=== PATIENT | male | born 1985 | race Caucasian/White ===

== ENCOUNTER 2020-10-16 10:53 | Observation (INO) | payer OTHER, SELFPAY ==
--- NOTE | ~2020-10-16 | NM_ITS ---
EXAMINATION: NM hepatobiliary wo pharm DATE: 10/17/2020 15:53 INDICATION: Epigastric and right upper quadrant abdominal pain. COMPARISON: Ultrasound 10/16/2020 TECHNIQUE: 4.5 mCi Tc-99m mebrofenin (Choletec) was administered intravenously. Scintigraphic images of the abdomen were obtained for one hour. Then, 2 mg morphine IV was administered, and imaging was continued for 30 minutes. FINDINGS: There is normal clearance of radiotracer from the blood pool. There is homogeneous tracer u ptake by the liver. Activity progresses to the bowel. There is no activity in the gallbladder. IMPRESSION: 1. Acute cholecystitis. Reviewed, dictated and finalized at location B. [employer]ACHIN[employer] SUPERVISOR IMPRESSION: 1. Acute cholecystitis.
--- NOTE | ~2020-10-16 | US_ITS ---
US abdomen limited INDICATION: Abdominal pain. Gallstones. PROCEDURE: Realtime right upper abdominal ultrasound. COMPARISON: No prior studies for comparison. FINDINGS: The pancreas is normal without focal mass or pancreatic ductal dilation. Liver echotexture is normal without focal mass or intrahepatic biliary dilatation. There is normal directional flow i n the portal vein. There are gallstones. There is gallbladder wall thickening. Common bile duct measures 3 mm. Positiv e sonographic Cohen's sign. IMPRESSION: 1: Cholelithiasis with gallbladder wall thickening and postoperative sonographic Cohen's sign. Findi ngs compatible with cholecystitis. Reviewed, dictated and finalized at location A. JOINER LOCKSTITCH IMPRESSION: 1: Cholelithiasis with gallbladder wall thickening and postoperative sonographi c Cohen's sign. Findings compatible with cholecystitis.
[2020-10-16 10:50] VITALS: BP 161/109; PULSE 80; RESP 18; TEMP 36.9; O2SAT 100
[2020-10-16 11:09] LABS: Basophils Absolute Auto 0.1 K/mm3 (0.0-0.1); Basophils Percent Auto 0.7 % (0.2-1.2); Eosinophils Absolute Auto 0.1 K/mm3 (0-0.3); Eosinophils Percent Auto 0.8 % (0-4.4); Hemoglobin 17.5 g/dL (14.0-18.0); Immature Granulocyte Absolute 0.07 K/mm3 (0.00-0.031); Immature Granulocyte Percent A 0.5 % (0-0.5); Lymphocytes Absolute Auto 3.36 K/mm3 (0.9-3.2); Lymphocytes Percent Auto 24.7 % (18.3-44.2); Mean Corpuscular Hemoglobin 31.5 pg (26-34); Mean Corpuscular Volume 89.9 fl (80-100); Mean Platelet Volume 11.1 fl (7.4-10.4); Monocytes Absolute Auto 0.8 K/mm3 (0.1-0.6); Monocytes Percent Auto 6.2 % (2.6-8.5); Neutrophils Absolute Auto 9.1 K/mm3 (1.3-6.7); Neutrophils Percent Auto 67.1 % (45.5-73.1); Platelet Count Result 354 k/mm3 (150-375); Red Blood Count 5.56 M/mm3 (4.6-6.20); Red Cell Distribution Width 13.3 % (11.5-14.5); White Blood Count 13.6 K/mm3 (4.5-10.0)
[2020-10-16 11:23] LABS: Alanine Aminotransferase 28 U/L (4-50); Albumin Level 4.8 g/dL (3.5-5.1); Alkaline Phosphatase 78 U/L (38-126); Anion Gap 8 mmol/L (8-16); Aspartate Amino Transferase 29 U/L (17-59); Bilirubin,Total 0.6 mg/dL (0.2-1.3); Blood Urea Nitrogen 16 mg/dL (9-20); Calcium 9.7 mg/dL (8.4-10.2); Carbon Dioxide 28 mmol/L (22-30); Chloride 102 mmol/L (98-107); Estimated CRCL calculation 122 ml/min; Estimated Glomerular Filt Rate > 60; Glucose 108 mg/dL (75-110); Lipase 65 U/L (23-300); Potassium 4.1 mmol/L (3.4-5.0); Sodium 138 mmol/L (137-145)
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
[2020-10-16] MEDS: SODIUM CHLORIDE 0.9% IV 1,000 ML 999 ML IV CONT (11:33)
[2020-10-16] MEDS: ONDANSETRON INJ 4 MG/2 ML VIAL IV PUSH ×2 (11:33→21:02)
[2020-10-16] MEDS: KETOROLAC 30 MG/ML VIAL (*BKC) IM (11:33)
[2020-10-16 12:03] VITALS: TEMP 36.9
[2020-10-16 13:03] VITALS: BP 134/85; PULSE 65; RESP 18; O2SAT 95
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
--- NOTE | 2020-10-16 13:35 | ADMGEN ---
This patient, Jayme Gómez, was admitted to Medical Room 345-. Patient/family oriented to hospital policies and general routines including ID bracelet, bed and alarms, visiting hours, pain management, procedures, bathroom and other care routines, personal items, smoking policy, room service/diet, and visiting hours. Information on how to activate the Rapid Response Team has been discussed. Patient/Family are encouraged to report perceived risks to care and to ask questions if they do not understand what they are told or what they should do.
[2020-10-16 13:48] VITALS: BMI 42.3
[2020-10-16 13:49] VITALS: BP 140/79; PULSE 67; RESP 18; TEMP 36.3; O2SAT 100
[2020-10-16] MEDS: LACTATED RINGERS 1,000 ML 100 ML IV CONT (14:23)
[2020-10-16 18:27] LABS: Appearance Urine Clear (Clear); Bilirubin Urine Negative (Negative); Blood Urine Negative (Negative); Color Urine Yellow (Yellow); Glucose Urine UA Negative (Negative); Ketones Urine Negative (Negative); Nitrate Urine Negative (Negative); Protein Urine Negative (Negative); Urobilinogen Urine Negative mg/dL (<2.0)
[2020-10-16 18:28] LABS: Add Urine Microscopic? NO; Leukocyte Esterase Ur Negative LEU/UL (Negative); Specific Grav Ur 1.054 (1.001-1.035)
--- NOTE | 2020-10-16 18:33 | ECG_ITS ---
Measurements Intervals [place] Rate: 65 P: 45 FL: 198 QRS: 68 QRSD: 94 T: 47 QT: 422 QTc: 439 Interpretive Statements SINUS RHYTHM WITH SINUS ARRHYTHMIA BASELINE WANDER- V4-V6 NORMAL ECG Electronically Signed On 10-16-2020 21:40:53 [employer] by Luis Ryan D.O.
[2020-10-16 19:22] LABS: Troponin I < 0.012 ng/mL (0.000-0.034)
[2020-10-16 20:00] VITALS: PULSE 61; RESP 14; O2SAT 100
[2020-10-16 20:05] VITALS: BP 150/95; PULSE 61; RESP 14; TEMP 36.4; O2SAT 100
[2020-10-16] MEDS: ENOXAPARIN 30 MG/0.3 ML SYRINGE SUB-Q (20:56)
[2020-10-16] MEDS: FAMOTIDINE 20 MG/2 ML VIAL IV PUSH (20:57)
[2020-10-16 22:06] LABS: Troponin I < 0.012 ng/mL (0.000-0.034)
[2020-10-17] MEDS: LACTATED RINGERS 1,000 ML 100 ML IV CONT ×2 (05:11→22:12)
[2020-10-17 05:49] VITALS: BP 151/95; PULSE 66; RESP 14; TEMP 36.6; O2SAT 99
[2020-10-17 06:05] LABS: Hematocrit 43.6 % (42.0-52.0); Hemoglobin 14.6 g/dL (14.0-18.0); Mean Corpuscular HGB Conc 33.5 g/dl (32-36); Mean Corpuscular Volume 89.7 fl (80-100); Mean Platelet Volume 11.8 fl (7.4-10.4); Platelet Count Result 323 k/mm3 (150-375); Red Blood Count 4.86 M/mm3 (4.6-6.20); Red Cell Distribution Width 13.6 % (11.5-14.5); White Blood Count 10.6 K/mm3 (4.5-10.0)
[2020-10-17 06:13] LABS: Alanine Aminotransferase 21 U/L (4-50); Albumin Level 3.6 g/dL (3.5-5.1); Alkaline Phosphatase 58 U/L (38-126); Anion Gap 4 mmol/L (8-16); Aspartate Amino Transferase 23 U/L (17-59); Bilirubin,Total 1.1 mg/dL (0.2-1.3); Blood Urea Nitrogen 15 mg/dL (9-20); Calcium 8.7 mg/dL (8.4-10.2); Carbon Dioxide 28 mmol/L (22-30); Chloride 104 mmol/L (98-107); Estimated CRCL calculation 111 ml/min; Estimated Glomerular Filt Rate > 60; Glucose 95 mg/dL (75-110); Potassium 3.8 mmol/L (3.4-5.0); Sodium 136 mmol/L (137-145)
--- NOTE | 2020-10-17 06:53 | PM.PNGS ---
Progress Note: A&P Assessment and Plan (1) Cholelithiasis and acute cholecystitis without obstruction: Code(s): K80.00 - Calculus of gallbladder with acute cholecystitis without obstruction Status: Acute Assessment and Plan: Pain is gone but nauseated. More nauseated when tried to drink water. Will get HIDA scan today. Probably will need cholecystectomy this admission. Continue IV antibiotics. Subjective Subjective Date/Time Seen: 10/17/20 06:53 Patient reports: pain is less, nausea and afebrile Review of Systems Review of Systems: All systems reviewed & are unremarkable except as noted in HPI and below Constitutional: Constitutional: Denies headache(s) Cardiovascular: Cardiovascular: Denies chest pain and Denies dyspnea Respiratory: Respiratory: Denies cough and Denies dyspnea Gastrointestinal: Gastrointestinal: Reports as per HPI Neurologic: Denies confusion and Denies headache(s) Exam Const: General: comfortable and no acute distress; No confusion Orientation/consciousness: patient oriented x3 and No confusion GI: Inspection: non-distended and scar GI Palp: Yes Soft to palpation, No Tenderness to palpation present (GI), No Guarding due to palpation present (GI) and No Rebound tenderness present Auscultation: normal bowel sounds Neuro: General: patient oriented x3, no focal motor deficits and No confusion Extrem: General: no calf tenderness and no edema Psych: Affect: normal affect Insight: Good insight present (Psych) Judgement: Good judgement present (Psych) Objective Data Vital Signs Vital Signs: Vital Signs - 24 hr 10/16/20 10:50 10/16/20 12:03 10/16/20 13:03 Temperature 36.9 C 36.9 C Pulse Rate 80 65 Respiratory Rate 18 18 Blood Pressure 161/109 H 134/85 Pulse Oximetry 100 95 10/16/20 13:49 10/16/20 20:00 10/16/20 20:05 Temperature 36.3 C L 36.4 C Pulse Rate 67 61 61 Respiratory Rate 18 14 14 Blood Pressure 140/79 150/95 H Pulse Oximetry 100 100 100 10/17/20 05:49 Temperature 36.6 C Pulse Rate 66 Respiratory Rate 14 Blood Pressure 151/95 H Pulse Oximetry 99 Intake/Output Intake/Output: Intake & Output 10/14/20 10/15/20 10/16/20 10/17/20 23:59 23:59 23:59 23:59 Intake Total 1100 1000 Output Total 0 800 Balance 1100 200 Meds/Results Medications: Active Medications Generic Name Dose Route Start Last Admin Trade Name Freq PRN Reason Stop Dose Admin Acetaminophen 500 mg 10/16/20 13:48 Acetaminophen 500 Mg Tablet PO Q6H PRN Mild Pain (1-3) or Fever Hydrocodone Bitart/Acetaminophen 1 tab 10/16/20 13:48 Hydrocodone/Acetaminophen (*Crx) 5-325 Mg Tablet PO Q4H PRN Pain Rated 4-6 Hydrocodone Bitart/Acetaminophen 1 tab 10/16/20 13:48 Hydrocodone/Acetaminophen (*Crx) 10-325 Mg Tablet PO Q4H PRN Pain Rated 7-10 Enoxaparin Sodium 30 mg 10/16/20 21:00 10/16/20 20:56 Enoxaparin 30 Mg/0.3 Ml Syringe SUB-Q 30 mg Q12HR TOMER Administration Famotidine 20 mg 10/16/20 21:00 10/16/20 20:57 Famotidine 20 Mg/2 Ml Vial IV PUSH 20 mg Q12HR TOMER Administration Piperacillin/Tazobactam/Dextrose 3.375 gm in 50 mls @ 100 mls/hr 10/16/20 18:00 10/17/20 05:09 Zosyn 3.375 Gm/D5w 50ml Pm IVPB 100 mls/hr Q6H TOMER Administration Lactated Ringer's 1,000 mls @ 100 mls/hr 10/16/20 13:50 10/17/20 05:11 Lr - Lactated Ringers Iv IV CONT 100 mls/hr .Q10H TOMER Administration Morphine Sulfate 2 mg 10/16/20 13:48 Morphine Sulfate (*Crx) 2 Mg/Ml Inj IV PUSH Q2H PRN Pain Rated 4-6 Morphine Sulfate 4 mg 10/16/20 13:48 Morphine Sulfate (*Crx) 4 Mg/Ml Inj IV PUSH Q2H PRN Pain Rated 7-10 Naloxone HCl 0.1 mg 10/16/20 13:48 Naloxone Hcl 0.4 Mg/Ml Vial IV PUSH Q2M PRN Opiate Reversal Ondansetron HCl 4 mg 10/16/20 13:48 10/16/20 21:02 Ondansetron Inj 4 Mg/2 Ml Vial IV PUSH 4 mg Q4H PRN Administration Nausea And Vomiting
[2020-10-17] MEDS: FAMOTIDINE 20 MG/2 ML VIAL IV PUSH ×2 (08:34→21:09)
[2020-10-17] MEDS: ENOXAPARIN 30 MG/0.3 ML SYRINGE SUB-Q ×2 (08:37→21:09)
[2020-10-17 10:32] VITALS: O2SAT 98
[2020-10-17 14:00] VITALS: BP 143/82; PULSE 64; RESP 16; TEMP 36.4; O2SAT 99
[2020-10-17] MEDS: MORPHINE SULFATE (*CRX) 2 MG/ML INJ IV PUSH (15:02)
[2020-10-17 21:54] VITALS: BP 135/96; PULSE 74; RESP 16; TEMP 36.2; O2SAT 98
[2020-10-18] VITALS (13 sets, daily range): BP systolic 125–154; BP diastolic 77–94; PULSE 62–93; RESP 15–19; TEMP 35.8–37.1; O2SAT 98–100
[2020-10-18 05:49] LABS: Hematocrit 45.2 % (42.0-52.0); Hemoglobin 15.1 g/dL (14.0-18.0); Mean Corpuscular HGB Conc 33.4 g/dl (32-36); Mean Corpuscular Hemoglobin 29.8 pg (26-34); Mean Corpuscular Volume 89.3 fl (80-100); Mean Platelet Volume 11.1 fl (7.4-10.4); Platelet Count Result 324 k/mm3 (150-375); Red Blood Count 5.06 M/mm3 (4.6-6.20); Red Cell Distribution Width 13.2 % (11.5-14.5); White Blood Count 8.7 K/mm3 (4.5-10.0)
[2020-10-18 06:09] LABS: Alanine Aminotransferase 22 U/L (4-50); Albumin Level 3.6 g/dL (3.5-5.1); Alkaline Phosphatase 59 U/L (38-126); Anion Gap 5 mmol/L (8-16); Aspartate Amino Transferase 23 U/L (17-59); Bilirubin,Total 1.3 mg/dL (0.2-1.3); Blood Urea Nitrogen 13 mg/dL (9-20); Calcium 8.8 mg/dL (8.4-10.2); Carbon Dioxide 27 mmol/L (22-30); Chloride 104 mmol/L (98-107); Estimated CRCL calculation 102 ml/min; Estimated Glomerular Filt Rate > 60; Glucose 85 mg/dL (75-110); Potassium 3.7 mmol/L (3.4-5.0); Sodium 136 mmol/L (137-145)
[2020-10-18] MEDS: CHLORHEXIDINE GLUCONATE 4% SOL 120 ML BTL 1 APPLIC TOPICAL (06:09)
--- NOTE | 2020-10-18 06:43 | PM.PNGS ---
Progress Note: A&P Assessment and Plan (1) Cholelithiasis and acute cholecystitis without obstruction: Code(s): K80.00 - Calculus of gallbladder with acute cholecystitis without obstruction Status: Acute Assessment and Plan: HIDA scan consistent with acute cholecystitis. Patient's pain is better but he can't even drink water without nausea. I have recommended we go ahead with laparoscopic cholecystectomy today. I discussed the procedure the risks the benefits. I also discussed the possibility that this may need to be converted to open surgery. The usual recovery with both laparoscopic and open surgery were discussed. All questions were answered. He understands and agrees to go ahead. Subjective Subjective Date/Time Seen: 10/18/20 06:43 Patient reports: pain is less, nausea and afebrile Interval history: still really can't eat without getting severe nausea. Only has tried drinking water and a small amount of that will result in nausea. Pain is much better, essentially gone. HIDA scan yesterday consistent with acute cholecystitis. Review of Systems Review of Systems: All systems reviewed & are unremarkable except as noted in HPI and below Constitutional: Constitutional: Denies chills, Denies fever(s), Denies headache(s) and Reports poor appetite Cardiovascular: Cardiovascular: Denies chest pain and Denies dyspnea Respiratory: Respiratory: Denies cough and Denies dyspnea Gastrointestinal: Gastrointestinal: Reports as per HPI, Denies abdominal pain and Reports nausea Neurologic: Denies confusion and Denies headache(s) Exam Const: General: comfortable and no acute distress; No confusion Orientation/consciousness: patient oriented x3 and No confusion GI: Inspection: non-distended and scar GI Palp: Yes Soft to palpation, No Tenderness to palpation present (GI), No Guarding due to palpation present (GI), No Palpable mass present and No Rebound tenderness present Auscultation: normal bowel sounds Neuro: General: patient oriented x3, no focal motor deficits and No confusion Extrem: General: no calf tenderness and no edema Psych: Affect: normal affect Insight: Good insight present (Psych) Judgement: Good judgement present (Psych) Objective Data Vital Signs Vital Signs: Vital Signs - 24 hr 10/17/20 10:32 10/17/20 14:00 10/17/20 21:54 Temperature 36.4 C 36.2 C L Pulse Rate 64 74 Respiratory Rate 16 16 Blood Pressure 143/82 H 135/96 H Pulse Oximetry 98 99 98 Intake/Output Intake/Output: Intake & Output 10/15/20 10/16/20 10/17/20 10/18/20 23:59 23:59 23:59 23:59 Intake Total 1100 2250 820 Output Total 0 800 200 Balance 1100 1450 620 Meds/Results Medications: Active Medications Generic Name Dose Route Start Last Admin Trade Name Freq PRN Reason Stop Dose Admin Hydrocodone Bitart/Acetaminophen 1 tab 10/16/20 13:48 Hydrocodone/Acetaminophen (*Crx) 5-325 Mg Tablet PO Q4H PRN Pain Rated 4-6 Hydrocodone Bitart/Acetaminophen 1 tab 10/16/20 13:48 Hydrocodone/Acetaminophen (*Crx) 10-325 Mg Tablet PO Q4H PRN Pain Rated 7-10 Enoxaparin Sodium 30 mg 10/16/20 21:00 10/17/20 21:09 Enoxaparin 30 Mg/0.3 Ml Syringe SUB-Q 30 mg Q12HR TOMER Administration Famotidine 20 mg 10/16/20 21:00 10/17/20 21:09 Famotidine 20 Mg/2 Ml Vial IV PUSH 20 mg Q12HR TOMER Administration Piperacillin/Tazobactam/Dextrose 3.375 gm in 50 mls @ 100 mls/hr 10/16/20 18:00 10/18/20 06:06 Zosyn 3.375 Gm/D5w 50ml Pm IVPB 100 mls/hr Q6H TOMER Administration Lactated Ringer's 1,000 mls @ 100 mls/hr 10/16/20 13:50 10/18/20 06:08 Lr - Lactated Ringers Iv IV CONT 100 mls/hr .Q10H TOMER Infusion Acetaminophen 1,000 mg in 100 mls @ 400 mls/hr 10/18/20 00:00 10/18/20 05:54 Ofirmev 1,000 Mg Ivpb IVPB 10/19/20 00:01 Infused Q6HR TOMER Infusion Morphine Sulfate 2 mg 10/16/20 13:48 Morphine Sulfate (*Crx) 2 Mg/Ml Inj IV PUSH Q2H P
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
[2020-10-18] MEDS: LACTATED RINGERS 1,000 ML 100 ML IV CONT ×2 (11:11→17:31)
[2020-10-18] MEDS: FAMOTIDINE 20 MG/2 ML VIAL IV PUSH ×2 (11:12→20:45)
--- NOTE | 2020-10-18 14:15 | WPDHPUPDATE1 ---
History and Physical Update Update Date/Time: 10/18/20 14:15 History and Physical has been reviewed, including an updated exam of the patient. There are NO changes in the patient's condition. Risks, benefits, and alternatives have been discussed and questions answered. Patient agrees to proceed with procedure.
[2020-10-18] MEDS: LACTATED RINGERS 1,000 ML 30 ML IV CONT ×2 (14:26→16:03)
[2020-10-18] MEDS: BUPIVACAINE/EPINEPHRINE 0.5% 10 ML VIAL 20 ML INFILTRATE (15:06)
--- NOTE | 2020-10-18 16:06 | P.OP_ITS ---
Procedure Note - Detailed Date of procedure: 10/18/20 Pre-op diagnosis: Cholelithiasis with acute cholecystitis Cholelithiasis with acute cholecystitis, with cystic duct obstruction Post-op diagnosis: same Procedure performed: Laparoscopic cholecystectomy Description of procedure: The patient was taken to surgery and induced into general anesthesia. The abdomen was prepped and draped. Trocars were placed in the usual fashion using 0.5% Marcaine with epinephrine and applied Medical optical trocars. A 5 millimeter camera was used. There were numerous adhesions to the right lobe of the liver and the anterior abdominal wall that had to be taken down before we could get access to the gallbladder. We also had to take down some adhesions of omentum to the edge of the liver. Once these were taken down, I was able to elevate the gallbladder and proceeded with freeing it from other adhesions surrounding the gallbladder. The gallbladder was then decompressed with a laparoscopic aspirator. There were large stones in the gallbladder and very little bile. The cholecystotomy was closed with a Vicryl endo-loop. The gallbladder was retracted anterosuperiorly. Adhesions to the gallbladder were taken down so that the cholecystohepatic triangle was exposed. The anatomy of the cholecystohepatic triangle was somewhat odd. The patient had a very large right hepatic artery and what appeared to be a cystic artery ran up along the medial margin of the gallbladder but then entered the liver. There may have been a tiny branch going to the gallbladder which was cauterized and removed with adhesions, it was difficult to tell. Traction was placed on the infundibulum. The infundibulum of the gallbladder was very thin and partially tore although no stones spilled. Dissection of the neck of the gallbladder and the cystic duct was carried out. The cystic duct was quite long. It was dissected out its entire length. The infundibulum and the more proximal gallbladder were dissected off the liver to an extent where there was only just a few peritoneal attachments of the gallbladder to the liver near the fundus. Critical view was achieved. We securely clipped and divided the cystic duct. As I mentioned, the cystic duct did not really go to the gallbladder and was left unharmed although it was dissected out thoroughly. The gallbladder was then further retracted so that the remaining peritoneal attachments to the liver could be divided. Once the gallbladder was freed entirely, it was placed in an Endo-Catch bag and retrieved through the 10 11 epigastric trocar site. The epiga stric trocar was then replaced. We reviewed the right upper quadrant. It was irrigated and suctioned. This was done repeatedly. I also re-reviewed the right hepatic artery and the cystic duct stump. No evidence of misidentification and common bile duct injury was appreciated. All looked good with no evidence of bleeding or bile leakage. We evacuated CO2 and removed the trocar sleeves. Skin wounds were closed with subcuticular 4 O Monocryl skin suture. The wounds were dressed with Exofin surgical adhesive. Patient was awakened and taken to recovery in good condition. Sponge and needle counts were correct x2. Anesthesia: GETA and local (0.5% Marcaine with epinephrine) Surgeon: Mando Gonzalez MD Counter Intelligence: Pat GARCIA Estimated blood loss (mL): 20 Drains: No Packing: No Pathology: yes (Gallbladder) Complications: None Condition: stable Disposition: PACU Findings: Chronic inflammation, several large gallstones noted. Many adhesions to the gallbladder and in the cholecystohepatic triangle most likely from previous surgery and chronic inflammation. No biliary ductal dilatation, no liver abnormalit
[2020-10-18] MEDS: fentaNYL CITRATE INJ (*CRX) 100 MCG/2 ML VIAL 25 MCG IV PUSH (16:54)
[2020-10-18] MEDS: ONDANSETRON INJ 4 MG/2 ML VIAL IV PUSH ×2 (17:05→17:25)
[2020-10-19 05:30] VITALS: BP 143/75; PULSE 75; RESP 16; TEMP 36.4; O2SAT 94
[2020-10-19 06:35] LABS: Hematocrit 44.3 % (42.0-52.0); Hemoglobin 15.3 g/dL (14.0-18.0); Mean Corpuscular HGB Conc 34.5 g/dl (32-36); Mean Corpuscular Hemoglobin 30.7 pg (26-34); Mean Corpuscular Volume 88.8 fl (80-100); Mean Platelet Volume 11.8 fl (7.4-10.4); Platelet Count Result 323 k/mm3 (150-375); Red Blood Count 4.99 M/mm3 (4.6-6.20); Red Cell Distribution Width 13.2 % (11.5-14.5); White Blood Count 13.5 K/mm3 (4.5-10.0)
[2020-10-19 06:50] LABS: Alanine Aminotransferase 46 U/L (4-50); Albumin Level 3.8 g/dL (3.5-5.1); Alkaline Phosphatase 60 U/L (38-126); Anion Gap 7 mmol/L (8-16); Aspartate Amino Transferase 38 U/L (17-59); Blood Urea Nitrogen 10 mg/dL (9-20); Calcium 8.8 mg/dL (8.4-10.2); Carbon Dioxide 26 mmol/L (22-30); Chloride 103 mmol/L (98-107); Estimated CRCL calculation 111 ml/min; Estimated Glomerular Filt Rate > 60; Glucose 94 mg/dL (75-110); Potassium 3.8 mmol/L (3.4-5.0); Sodium 136 mmol/L (137-145)
[2020-10-19] MEDS: ENOXAPARIN 30 MG/0.3 ML SYRINGE SUB-Q (08:51)
[2020-10-19] MEDS: FAMOTIDINE 20 MG/2 ML VIAL IV PUSH (08:51)
--- NOTE | 2020-10-19 08:53 | WPDANESPN ---
Anes - Prog Note Post-Op Date/Time: 10/19/20 08:53 Cardiovascular status: normal Respiratory status: normal Airway patency: baseline Mental status: baseline Post-Op hydration status: normal Vital Signs: Last Vital Signs Temp 36.4 C L 10/19/20 05:30 Pulse 75 10/19/20 05:30 Resp 16 10/19/20 05:30 BP 143/75 H 10/19/20 05:30 Pulse Ox 94 10/19/20 05:30 Pain Score (VAS): 0 I/O: Intake & Output 10/18/20 10/19/20 10/19/20 23:59 07:59 15:59 Intake Total 1999 2149 Output Total 0 Balance 1999 - Laboratory Tests 10/19/20 05:43 10/19/20 05:43 10/19/20 10/19/20 05:43 05:43 WBC 13.5 H RBC 4.99 Hgb 15.3 Hct 44.3 MCV 88.8 MCH 30.7 MCHC 34.5 RDW 13.2 Plt Count 323 MPV 11.8 H Sodium 136 L Potassium 3.8 Chloride 103 Carbon Dioxide 26 Anion Gap 7 L BUN 10 Creatinine 1.10 Estim Creat Clear Calc 111 Estimated GFR > 60 Glucose 94 Calcium 8.8 Total Bilirubin 1.0 AST 38 ALT 46 Alkaline Phosphatase 60 Total Protein 7.0 Albumin 3.8 Post-procedural complaints: none Patient Feedback: Patient satisfied with anesthetic care.
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
== END 2020-10-19 10:50 | disposition home or self-care (01) ==
LOC: ANHED 11:12 → ANH3MED 13:20
PROVIDERS: Admitting Provider Surgery; Emergency Provider Emergency Medicine; PCP Internal Medicine; Visit Provider Surgery
PROC: 0FT44ZZ Resection of Gallbladder, Percutaneous Endoscopic Approach (ICD-10-PCS; CPT 47562; principal; 2020-10-18 14:30)
DX: K80.10 Calculus of gallbladder with chronic cholecystitis without obstruction (principal); K82.8 Other specified diseases of gallbladder; G47.33 Obstructive sleep apnea (adult) (pediatric); E66.01 Morbid (severe) obesity due to excess calories; E78.00 Pure hypercholesterolemia, unspecified; F43.10 Post-traumatic stress disorder, unspecified; I10 Essential (primary) hypertension; K21.9 Gastro-esophageal reflux disease without esophagitis; Z90.81 Acquired absence of spleen; Z87.828 Personal history of other (healed) physical injury and trauma; Z87.891 Personal history of nicotine dependence; Z90.411 Acquired partial absence of pancreas; Z68.41 Body mass index [BMI] 40.0-44.9, adult
CPT/HCPCS: 47562; 36415; 76705; 78226; 80053; 81003; 83690; 84484; 85025; 85027; 86850; 86900; 86901; 88304; 93005; 96361; 96365; 96366; 96367; 96372; 96375; 96376; 99285; A9537; C1713; G0378; J0131; J1100; J1650; J1885; J2250; J2270; J2405; J2543; J2704; J2710; J3010; J7030; J7120